=== PATIENT | male | born 1970 | race African-American/Black ===

== ENCOUNTER 2017-04-17 09:43 | Inpatient (IN) | payer OTHER ==
[2017-04-17 10:22] VITALS: BMI 41.9
[2017-04-17] MEDS ORDERED: ACETAMINOPHEN 325 MG TABLET (FP) PO PRN (14:56)
[2017-04-17] MEDS ORDERED: IBUPROFEN 400 MG TABLET (FP) PO PRN (14:56)
[2017-04-17] MEDS ORDERED: chlordiazePOXIDE HCL 25 MG CAPSULE PO PRN (14:56)
[2017-04-17] MEDS ORDERED: P-EPHED 60MG/TRIPROLIDI 2.5MG TABLET PO PRN (14:56)
[2017-04-17] MEDS ORDERED: MENTHOL/PHENOL 1 EACH UD MM PRN (14:56)
[2017-04-17] MEDS ORDERED: diphenhydrAMINE HCL 50 MG CAPSULE PO PRN (14:56)
[2017-04-17] MEDS ORDERED: MAG HYDROX/AL HYDROX/SIMETH 30 ML UNIT-DOSE CUP PO PRN (14:56)
[2017-04-17] MEDS ORDERED: MAGNESIUM CITRATE 300 ML BOTTLE PO PRN (14:56)
[2017-04-17] MEDS ORDERED: hydrOXYzine PAMOATE 50 MG CAPSULE (FP) PO PRN (14:56)
[2017-04-17] MEDS ORDERED: NICOTINE POLACRILEX 2 MG GUM BC PRN (14:56)
[2017-04-17] MEDS ORDERED: LOPERAMIDE HCL 2 MG CAPSULE PO PRN (14:56)
[2017-04-17] MEDS ORDERED: MAGNESIUM HYDROX 2400MG/30ML ORAL SUSPENSION 30 ML CUP PO PRN (14:56)
[2017-04-17] MEDS ORDERED: guaiFENesin/D-METHORPHAN HB 10 ML UNIT-DOSE CUPS PO PRN (14:56)
[2017-04-17] MEDS ORDERED: ALBUTEROL SO4 6.7 GM HFA INHALER IH PRN (14:59)
[2017-04-17] MEDS ORDERED: NITROGLYCERIN SUBLINGUAL 1/150 0.4 MG TAB SL PRN (14:59)
[2017-04-17] MEDS ORDERED: DOCUSATE SODIUM 100 MG CAPSULE (FP) PO PRN (14:59)
--- NOTE | 2017-04-17 15:11 | HP ---
CIWA Score - CIWA Score Nausea/Vomitin-Int. Nausea w/Dry Heave Muscle Tremors: 4-Moderate,w/Arms Extend Anxiety: 4-Mod. Anxious/Guarded Agitation: 3 Paroxysmal Sweats: 3 Orientation: 0-Oriented Tacttile Disturbances: 0-None Auditory Disturbances: 0-None Visual Disturbances: 0-None Headache: 0-None Present CIWA-Ar Total Score: 18 Admission ROS BHS - HPI Chief Complaint: alcohol withdrawal sx Allergies/Adverse Reactions: Allergies Allergy/AdvReac Type Severity Reaction Status Date / Time No Known Allergies Allergy Verified 04/17/17 12:25 History of Present Illness: 46 yo m with h/o chronic alcoholism, cocaine, cannabis and nicotine dependence< 10/day transferred from [facility] after clearance from multiple medical comorbidities PMHX HTN, COPD, Asthma, PPD+, bipolar DO, GERD, cardiac disease for inpatient medicall managed detoxification from alcohol. Patient reports yovany when he does not drink last drink today this AM. h/o alcohol withdrawwal seizures 2014, h/o DTS 2014 did not require intubation, had hallucinations. took al medicatons as prescribed today in hospital wishes to continue here at [place] and attned rehab after. Exam Limitations: No Limitations - Ebola screening Have you traveled outside of the country in the last 21 days: No Have you been sick,other than usual withdrawal symptoms: No Do you have a fever: No - Review of Systems Constitutional: Diaphoresis, Loss of Appetite, Malaise, Night Sweats, Weakness EENT: reports: Blurred Vision (glasses) Respiratory: reports: SOB with Exertion, Wheezing, Productive cough Cardiac: reports: Syncope (when he drinks) GI: reports: Nausea, Poor Appetite, Poor Fluid Intake, Indigestion, Abdominal cramping : reports: No Symptoms Reported Neuro: reports: Headache, Numbness, Paresthesia, Seizure (2015 from alochol), Tremors, Weakness Endocrine: reports: No Symptoms Reported Hematology: reports: No Symptoms Reported Psychiatric: reports: Judgement Intact, Mood/Affect Appropiate, Orientated x3, Anxious, Depressed Other Systems: Reviewed and Negative Patient History - Patient Medical History Hx Anemia: No Hx Asthma: Yes Hx Chronic Obstructive Pulmonary Disease (COPD): Yes Hx Cancer: No Hx Cardiac Disorders: Yes (CHF, angina, to heart attacks and cardiac arrest 2008 ) Hx Congestive Heart Failure: Yes (s/p ) Hx Hypertension: Yes Hx Hypercholesterolemia: Yes Hx Pacemaker: No HX Cerebrovascular Accident: No Hx Seizures: Yes (last episode was in 2014) Hx Dementia: No Hx Diabetes: No Hx Gastrointestinal Disorders: Yes (acid reflux) Hx Liver Disease: No Hx Genitourinary Disorders: No Hx Sexually Transmitted Disorders: No Hx Renal Disease (ESRD): No Hx Thyroid Disease: No Hx Human Immunodeficiency Virus (HIV): No Hx Hepatitis C: No Hx Depression: Yes Hx Suicide Attempt: No Hx Bipolar Disorder: Yes (hospitalized several times no h/o suicide attempts) Hx Schizophrenia: Yes - Patient Surgical History Past Surgical History: No Hx Neurologic Surgery: No Hx Cataract Extraction: No Hx Cardiac Surgery: No Hx Lung Surgery: No Hx Breast Surgery: No Hx Breast Biopsy: No Hx Abdominal Surgery: No Hx Appendectomy: No Hx Cholecystectomy: No Hx Genitourinary Surgery: No Hx Section: No Hx Orthopedic Surgery: No Other Surgical History: left wrist in 2012 Anesthesia Reaction: No - PPD History Previous Implant?: Yes Documented Results: Positive w/o proof - Reproductive History Patient is a Female of Child Bearing Age (11 -55 yrs old): No Patient : No - Smoking Cessation Smoking history: Current every day smoker Have you smoked in the past 12 months: Yes Aproximately how many cigarettes per day: 6 Hx Chewing Tobacco Use: No Initiated information on smoking cessation: Yes 'Breaking Loose' booklet given: 04/17/17 - Substance & Tx. History Hx Alcohol Use: Yes Hx Substance Use: Yes Substance Use Type: Alcohol, Cocaine, Marijuana Hx Substance Use Treatment: Yes (last detox 7 years ago, longest sober x7 years 2009- 2016) - Substances Abused Cocaine Route: Inhalation Frequency: 1-2 times per week Amount used: $10 Age of first use: 17 Date of Last Use: 04/16/17 Alcohol-vodka/beer Route: Oral Frequency: Daily Amount used: 3 1/2 pts./1 1/2-6 pks Age of first use: 12 Date of Last Use: 04/17/17 Marijuana/Hashish Route: Inhalation Amount used: occasional not regular smoker first used last night Date of Last Use: 04/16/17 Family Disease History - Family Disease History Family Disease History: Heart Disease: Grandparent, Father, Mother, Brother, Sister, Son, Daughter Admission Physical Exam [facility] - Vital Signs Vital Signs: Vital Signs - 24 hr 04/17/17 10:20 Temperature 97.4 F L Pulse Rate 81 Respiratory 20 Rate Blood Pressure 155/88 - Physical General Appearance: Yes: No Apparent Distress, Appropriately Dressed, Disheveled , Obese, Tremorous, Irritable, Sweating, Anxious HEENTM: Yes: Within Normal Limits, EOMI, Hearing grossly Normal, Normal ENT Inspection, Normocephalic, Normal Voice, LILLY, Pharynx Normal, Lessions (scar from trach after cardiac arrest in 2009 central no sign of infection) Respiratory: Yes: Within Normal Limits, Chest Non-Tender, Lungs Clear, Normal Breath Sounds, No Respiratory Distress, No Accessory Muscle Use Neck: Yes: Within Normal Limits, No masses,lesions,Nodules, Supple, Trachea in good position Breast: Yes: Breast Exam Deferred Cardiology: Yes: Within Normal Limits, Regular Rhythm, Regular Rate, S1, S2 Abdominal: Yes: Normal Bowel Sounds, Non Tender, Soft, Increased Bowel Sounds, Distended Genitourinary: Yes: Within Normal Limits Back: Yes: Within Normal Limits, Normal Inspection Musculoskeletal: Yes: Within Normal Limits, full range of Motion, Gait Steady, Pelvis Stable, Other (becomes sob with exertion walking long distances) Extremities: Yes: Within Normal Limits, Normal Capillary Refill, Normal Inspection, Normal Range of Motion, Non-Tender Neurological: Yes: landcare officer II-XII NML intact, Fully Oriented, Alert, Motor Strength 5/5, Normal Response, Depressed Affect Integumentary: Yes: Within Normal Limits, Normal Color, Warm Lymphatic: Yes: Within Normal Limits - Addiitonal Findings: withdrawal sx in a patient with multiple medical comorbidities and recent illness - Diagnostic (1) Alcohol dependence with uncomplicated withdrawal Current Visit: Yes Status: Chronic (2) Asthma Current Visit: Yes Status: Chronic (3) Bipolar disorder Current Visit: Yes Status: Chronic (4) COPD (chronic obstructive pulmonary disease) Current Visit: Yes Status: Chronic (5) Cannabis dependence, uncomplicated Current Visit: Yes Status: Acute (6) Chronic GERD Current Visit: Yes Status: Chronic (7) Cocaine dependence, uncomplicated Current Visit: Yes Status: Chronic (8) Essential hypertension Current Visit: Yes Status: Chronic (9) Nicotine dependence Current Visit: Yes Status: Chronic Qualifiers: Nicotine product type: cigarettes (10) PPD positive Current Visit: Yes Status: Chronic (11) CHF (congestive heart failure) Current Visit: No Status: Inactive BHS Breath Alcohol Content Breath Alcohol Content: 0.060 Urine Drug Screen - Results Drug Screen Negative: No Urine Drug Screen Results: THC-Marijuana, ROCHELLE-Cocaine
--- NOTE | 2017-04-17 15:31 | CONSULT ---
[facility] Psychiatric Consult - Data Date of interview: 04/17/17 Admission source: [facility] Identifying data: This is 46 years old male with history of Bipolar disorder, history of psychiatric hospitalizations intoxicated with: Alcohol, Cannabis, Cociane and Nicotine Substance Abuse History: Smoking history: Current every day smoker. Have you smoked in the past 12 months: Yes. Aproximately how many cigarettes per day: 6. Hx Chewing Tobacco Use: No. Initiated information on smoking cessation: Yes. 'Breaking Loose' booklet given: 04/17/17. - Substance & Tx. History. Hx Alcohol Use: Yes. Hx Substance Use: Yes. Substance Use Type: Alcohol, Cocaine , Marijuana. Hx Substance Use Treatment: Yes (last detox 7 years ago, longest sober x7 years 2009- 2016). - Substances Abused. Cocaine. Route: Inhalation. Frequency: 1-2 times per week. Amount used: $10. Age of first use : 17. Date of Last Use: 04/16/17. Alcohol-vodka/beer. Route: Oral. Frequency: Daily. Amount used: 3 1/2 pts./1 1/2-6 pks. Age of first use: 12. Date of Last Use: 04/17/17. Marijuana/Hashish. Route: Inhalation. Amount used: occasional not regular smoker first used last night. Date of Last Use: Medical History: Astma, COPD, GERD, HTN, Obesity, CHF, PPD+ history Psychiatric History: Patoient reports to carry Bipolar disorder, reports [facility] , reports liz been with good response in the past on: Depakote 500mg po bid. Abilify 20mg poqd Physical/Sexual Abuse/Trauma History: Denies Additional Comment: Depakote 500mg po bid. Abilify 20mg poqd Mental Status Exam - Mental Status Exam Alert and Oriented to: Person Cognitive Function: Fair Patient Appearance: Unkempt Mood: Anxious Affect: Mood Congruent Patient Behavior: Talkative Speech Pattern: Pressured Voice Loudness: Normal Thought Process: Goal Oriented Thought Disorder: Being Controlled Hallucinations: Denies Suicidal Ideation: Denies Homicidal Ideation: Denies Insight/Judgement: Fair Sleep: Difficulty falling asleep Appetite: Weight gain Muscle strength/Tone: Normal Gait/Station: Normal Additional Comments: Depakote 500mg po bid. Abilify 20mg poqd Psychiatric Findings - Problem List ([place] 1, 2,3) (1) Cannabis dependence, uncomplicated Current Visit: Yes Status: Acute (2) Alcohol dependence with uncomplicated withdrawal Current Visit: Yes Status: Chronic (3) Bipolar disorder Current Visit: Yes Status: Chronic (4) Cocaine dependence, uncomplicated Current Visit: Yes Status: Chronic (5) Nicotine dependence Current Visit: Yes Status: Chronic Qualifiers: Nicotine product type: cigarettes (6) Bipolar I disorder Current Visit: Yes Status: Acute - Initial Treatment Plan Initial Treatment Plan: Depakote 250mg po bid. Abilify 20mg poqd. Blood Depakote level
[2017-04-17] MEDS ORDERED: chlordiazePOXIDE HCL 25 MG CAPSULE PO ONE (15:45)
[2017-04-17] MEDS: CARVEDILOL 25 MG TABLET (FP) PO SCH ×2 (19:08→22:42)
[2017-04-17] MEDS: chlordiazePOXIDE HCL 25 MG CAPSULE PO SCH ×2 (19:09→22:43)
[2017-04-17] MEDS: NICOTINE 14 MG/24 HOURS TOPICAL PATCH TD SCH (19:09)
[2017-04-17] MEDS: ISOSORBIDE DINITRATE 20 MG TABLET (FP) PO SCH ×2 (20:00→22:42)
[2017-04-17] MEDS: ATORVASTATIN CA 40 MG TABLET (FP) PO SCH (22:42)
[2017-04-17] MEDS: THIAMINE HCL 100 MG TABLET (FP) PO SCH (22:42)
[2017-04-17] MEDS: DIVALPROEX SODIUM 250 MG TABLET E.C. (FP) PO SCH (22:42)
[2017-04-17] MEDS: ACLIDINIUM BROMIDE 400 MCG/INH AERO.POWD IH SCH (22:43)
[2017-04-18 00:32] LABS: URINE APPEARANCE CLEAR; URINE BILIRUBIN NEGATIVE (NEGATIVE); URINE BLOOD NEGATIVE (NEGATIVE); URINE COLOR YELLOW; URINE GLUCOSE (UA) NEGATIVE (NEGATIVE); URINE KETONE NEGATIVE (NEGATIVE); URINE LEUK ESTERASE NEGATIVE (NEGATIVE); URINE NITRITE NEGATIVE (NEGATIVE); URINE UROBILINOGEN 4.0 E.U/dl mg/dL (0.2-1.0)
[2017-04-18 00:38] LABS: URINE PROTEIN 1+ (NEGATIVE)
[2017-04-18 00:59] LABS: CALCIUM OXALATE CRYSTALS FEW /hpf (NONE SEEN); URINE MUCUS RARE; URINE RBC 1 /hpf (0-3); URINE WBC 3 /hpf (3-5)
[2017-04-18] MEDS: chlordiazePOXIDE HCL 25 MG CAPSULE PO SCH ×4 (05:54→22:47)
[2017-04-18] MEDS: ISOSORBIDE DINITRATE 20 MG TABLET (FP) PO SCH (07:15)
[2017-04-18] MEDS ORDERED: LISINOPRIL 20 MG TABLET (FP) PO ONE ×2 (09:16→10:00)
[2017-04-18] MEDS: PATIENT'S OWN MEDICATION (NON-FORMULARY) (Hydralazine Hcl [Hydralazine Hcl] 100 MG) PO SCH (09:19)
--- NOTE | 2017-04-18 09:23 | EKG ---
Test Reason : Blood Pressure : / mmHG Vent. Rate : 065 BPM Atrial Rate : 065 BPM P-R Int : 192 ms QRS Dur : 106 ms QT Int : 414 ms P-R-T Axes : 064 063 028 degrees QTc Int : 430 ms NORMAL SINUS RHYTHM POSSIBLE LEFT ATRIAL ENLARGEMENT INCOMPLETE LEFT BUNDLE BRANCH BLOCK Confirmed by KRYSTAL DONIS MD ([id number]) on 04/18/2017 9:22:47 AM Referred By: Young Fisher Confirmed By:KRYSTAL DONIS MD
[2017-04-18] MEDS ORDERED: ERGOCALCIFEROL (VITAMIN D2) 50,000 UNIT CAPSULE (FP) PO SCH (10:00)
[2017-04-18] MEDS ORDERED: PATIENT'S OWN MEDICATION (NON-FORMULARY) (Lisinopril [Zestril] 40 MG) PO SCH (10:00)
[2017-04-18 10:18] LABS: MCH 29.1 pg (25.7-33.7); MCHC 32.8 g/dl (32.0-35.9); MEAN CELL VOLUME 88.8 fl (80-96); MEAN PLT VOLUME 9.1 fl (7.5-11.1); PLATELET COUNT 244 K/MM3 (134-434); RDW 14.8 % (11.9-15.9); WHITE BLOOD COUNT 5.1 K/mm3 (4.0-10.0)
[2017-04-18] MEDS: ACLIDINIUM BROMIDE 400 MCG/INH AERO.POWD IH SCH ×2 (10:23→22:50)
[2017-04-18] MEDS: NIFEdipine E.R. 90 MG TABLET (FP) PO SCH (10:24)
[2017-04-18] MEDS: ASPIRIN 81 MG CHEWABLE TABLETS PO SCH (10:24)
[2017-04-18] MEDS: ARIPiprazole 10 MG TABLET PO SCH (10:24)
[2017-04-18] MEDS: PANTOPRAZOLE 40 MG TABLET (FP) PO SCH (10:24)
[2017-04-18] MEDS: NICOTINE 14 MG/24 HOURS TOPICAL PATCH TD SCH (10:24)
[2017-04-18] MEDS: CARVEDILOL 25 MG TABLET (FP) PO SCH ×2 (10:25→22:48)
[2017-04-18] MEDS: PRENATAL VITAMINS W/ FOLIC ACID TABLET (FP) PO SCH (10:25)
[2017-04-18] MEDS: DIVALPROEX SODIUM 250 MG TABLET E.C. (FP) PO SCH ×2 (10:26→22:48)
[2017-04-18] MEDS: FUROSEMIDE 40 MG TABLET (FP) PO SCH (10:26)
[2017-04-18 10:42] LABS: CALCIUM 8.9 mg/dL (8.5-10.1)
[2017-04-18 10:48] LABS: ALBUMIN 3.8 g/dl (3.4-5.0); ALK PHOS 88 U/L (45-117); ANION GAP 6 (8-16); BILIRUBIN,TOTAL 0.5 mg/dL (0.2-1.0); CO2 31 mmol/L (21-32); CREATININE 1.4 mg/dL (0.7-1.3); GLUCOSE,RANDOM 84 mg/dL (74-106); SGOT/AST 13 U/L (15-37); SGPT/ALT 25 U/L (12-78); TOT PROT 7.1 g/dl (6.4-8.2)
--- NOTE | 2017-04-18 11:54 | PN ---
[facility] CIWA - CIWA Score Nausea/Vomitin-No Nausea/No Vomiting Muscle Tremors: 4-Moderate,w/Arms Extend Anxiety: 4-Mod. Anxious/Guarded Agitation: 4-Moderately Restless Paroxysmal Sweats: 1-Minimal Palms Moist Orientation: 0-Oriented Tacttile Disturbances: 3-Moderate Itch/Numb/Burn Auditory Disturbances: 0-None Visual Disturbances: 0-None Headache: 0-None Present CIWA-Ar Total Score: 16 S Progress Note (SOAP) Subjective: ANXIETY,SWEATS,TREMORS, INTERMITTENT SLEEP. Objective: 04/18/17 11:53 Vital Signs Temperature 97.4 F L 04/18/17 10:05 Pulse Rate 73 04/18/17 10:05 Respiratory Rate 18 04/18/17 10:05 Blood Pressure 129/87 04/18/17 10:05 O2 Sat by Pulse Oximetry (%) Laboratory Last Values WBC 5.1 K/mm3 (4.0-10.0) 04/18/17 06:00 RBC 4.60 M/mm3 (4.00-5.60) 04/18/17 06:00 Hgb 13.4 GM/dL (11.7-16.9) 04/18/17 06:00 Hct 40.8 % (35.4-49) 04/18/17 06:00 MCV 88.8 fl (80-96) 04/18/17 06:00 MCH 29.1 pg (25.7-33.7) 04/18/17 06:00 MCHC 32.8 g/dl (32.0-35.9) 04/18/17 06:00 RDW 14.8 % (11.9-15.9) 04/18/17 06:00 Plt Count 244 K/MM3 (134-434) 04/18/17 06:00 MPV 9.1 fl (7.5-11.1) 04/18/17 06:00 Sodium 142 mmol/L (136-145) 04/18/17 06:00 Potassium 3.9 mmol/L (3.5-5.1) 04/18/17 06:00 Chloride 105 mmol/L (98-107) 04/18/17 06:00 Carbon Dioxide 31 mmol/L (21-32) 04/18/17 06:00 Anion Gap 6 (8-16) L 04/18/17 06:00 BUN 14 mg/dL (7-18) 04/18/17 06:00 Creatinine 1.4 mg/dL (0.7-1.3) H 04/18/17 06:00 Creat Clearance w eGFR 54.32 (>60) 04/18/17 06:00 Random Glucose 84 mg/dL (74-106) 04/18/17 06:00 Calcium 8.9 mg/dL (8.5-10.1) 04/18/17 06:00 Total Bilirubin 0.5 mg/dL (0.2-1.0) 04/18/17 06:00 AST 13 U/L (15-37) L 04/18/17 06:00 ALT 25 U/L (12-78) 04/18/17 06:00 Alkaline Phosphatase 88 U/L (45-117) 04/18/17 06:00 Total Protein 7.1 g/dl (6.4-8.2) 04/18/17 06:00 Albumin 3.8 g/dl (3.4-5.0) 04/18/17 06:00 Urine Color Yellow 04/18/17 00:01 Urine Appearance Clear 04/18/17 00:01 Urine pH 5.0 (5.0-8.0) 04/18/17 00:01 Ur Specific [place] 1.025 (1.005-1.025) 04/18/17 00:01 Urine Protein 1+ (NEGATIVE) H 04/18/17 00:01 Urine Glucose (UA) Negative (NEGATIVE) 04/18/17 00:01 Urine Ketones Negative (NEGATIVE) 04/18/17 00:01 Urine Blood Negative (NEGATIVE) 04/18/17 00:01 Urine Nitrite Negative (NEGATIVE) 04/18/17 00:01 Urine Bilirubin Negative (NEGATIVE) 04/18/17 00:01 Urine Urobilinogen 4.0 e.u/dl mg/dL (0.2-1.0) 04/18/17 00:01 Ur Leukocyte Esterase Negative (NEGATIVE) 04/18/17 00:01 Urine RBC 1 /hpf (0-3) 04/18/17 00:01 Urine WBC 3 /hpf (3-5) 04/18/17 00:01 Ur Epithelial Cells Rare /hpf (FEW) 04/18/17 00:01 Calcium Oxalate Crystal Few /hpf (NONE SEEN) 04/18/17 00:01 Urine Mucus Rare 04/18/17 00:01 Valproic Acid < 3.000 ug/ml (50-100) L 04/18/17 06:00 RPR Titer Nonreactive (NONREACTIVE) 04/18/17 06:00 Assessment: 04/18/17 11:53 WITHDRAWAL SX Plan: CONTINUE DETOX
[2017-04-18 12:18] LABS: HIV 1 & 2 AB NEGATIVE; HIV 1 AGp24 NEGATIVE
[2017-04-18] MEDS: ISOSORBIDE DINITRATE 10 MG TABLET (FP) PO SCH ×2 (14:02→22:50)
[2017-04-18] MEDS: ATORVASTATIN CA 40 MG TABLET (FP) PO SCH (22:48)
[2017-04-18] MEDS: THIAMINE HCL 100 MG TABLET (FP) PO SCH (22:48)
[2017-04-19] MEDS: chlordiazePOXIDE HCL 25 MG CAPSULE PO SCH ×2 (05:46→10:42)
[2017-04-19] MEDS: ISOSORBIDE DINITRATE 10 MG TABLET (FP) PO SCH ×3 (05:47→22:53)
[2017-04-19] MEDS: NIFEdipine E.R. 90 MG TABLET (FP) PO SCH (10:42)
[2017-04-19] MEDS: DIVALPROEX SODIUM 250 MG TABLET E.C. (FP) PO SCH ×2 (10:42→22:53)
[2017-04-19] MEDS: ASPIRIN 81 MG CHEWABLE TABLETS PO SCH (10:42)
[2017-04-19] MEDS: PANTOPRAZOLE 40 MG TABLET (FP) PO SCH (10:42)
[2017-04-19] MEDS: FUROSEMIDE 40 MG TABLET (FP) PO SCH (10:42)
[2017-04-19] MEDS: PRENATAL VITAMINS W/ FOLIC ACID TABLET (FP) PO SCH (10:42)
[2017-04-19] MEDS: ACLIDINIUM BROMIDE 400 MCG/INH AERO.POWD IH SCH ×2 (10:42→22:54)
[2017-04-19] MEDS: CARVEDILOL 25 MG TABLET (FP) PO SCH ×2 (10:43→22:53)
[2017-04-19] MEDS: ARIPiprazole 10 MG TABLET PO SCH (10:44)
[2017-04-19] MEDS: NICOTINE 14 MG/24 HOURS TOPICAL PATCH TD SCH (11:09)
[2017-04-19] MEDS: chlordiazePOXIDE 5 MG CAPSULE PO SCH ×2 (17:40→22:54)
--- NOTE | 2017-04-19 20:55 | PN ---
S CIWA - CIWA Score Nausea/Vomitin Muscle Tremors: 2 Anxiety: 3 Agitation: 2 Paroxysmal Sweats: 3 Orientation: 0-Oriented Tacttile Disturbances: 0-None Auditory Disturbances: 2-Mild Harshness/Frighten Visual Disturbances: 3-Moderate Sensitivity Headache: 0-None Present CIWA-Ar Total Score: 18 S Progress Note (SOAP) Subjective: Interrupted Sleep, Stomach Cramping, Body aches, Nausea, Sweating. Objective: PT. A & O X 3, OBSERVED AMBULATING ON UNIT. NO ACUTE DISTRESS. 04/19/17 20:52 Vital Signs Temperature 98.2 F 04/19/17 17:53 Pulse Rate 69 04/19/17 17:53 Respiratory Rate 20 04/19/17 17:53 Blood Pressure 104/63 04/19/17 17:53 O2 Sat by Pulse Oximetry (%) Laboratory Tests 04/17/17 04/18/17 04/18/17 06:00 00:01 06:00 WBC 5.1 RBC 4.60 Hgb 13.4 Hct 40.8 MCV 88.8 MCH 29.1 MCHC 32.8 RDW 14.8 Plt Count 244 MPV 9.1 Sodium Potassium Chloride Carbon Dioxide Anion Gap BUN Creatinine Creat Clearance w eGFR Random Glucose Calcium Total Bilirubin AST ALT Alkaline Phosphatase Total Protein Albumin Urine Color Yellow Urine Appearance Clear Urine pH 5.0 Ur Specific [place] 1.025 Urine Protein 1+ H Urine Glucose (UA) Negative Urine Ketones Negative Urine Blood Negative Urine Nitrite Negative Urine Bilirubin Negative Urine Urobilinogen 4.0 e.u/dl Ur Leukocyte Esterase Negative Urine RBC 1 Urine WBC 3 Ur Epithelial Cells Rare Calcium Oxalate Crystal Few Urine Mucus Rare Valproic Acid RPR Titer HIV 1&2 Antibody Screen Negative HIV P24 Antigen Negative 04/18/17 04/18/17 04/18/17 06:00 06:00 06:00 WBC RBC Hgb Hct MCV MCH MCHC RDW Plt Count MPV Sodium 142 Potassium 3.9 Chloride 105 Carbon Dioxide 31 Anion Gap 6 L BUN 14 Creatinine 1.4 H Creat Clearance w eGFR 54.32 Random Glucose 84 Calcium 8.9 Total Bilirubin 0.5 AST 13 L ALT 25 Alkaline Phosphatase 88 Total Protein 7.1 Albumin 3.8 Urine Color Urine Appearance Urine pH Ur Specific [place] Urine Protein Urine Glucose (UA) Urine Ketones Urine Blood Urine Nitrite Urine Bilirubin Urine Urobilinogen Ur Leukocyte Esterase Urine RBC Urine WBC Ur Epithelial Cells Calcium Oxalate Crystal Urine Mucus Valproic Acid < 3.000 L RPR Titer Nonreactive HIV 1&2 Antibody Screen HIV P24 Antigen LABS NOTED. Assessment: 04/19/17 20:53 WITHDRAWAL SYMPTOMS. Plan: CONTINUE DETOX.
[2017-04-19] MEDS: ATORVASTATIN CA 40 MG TABLET (FP) PO SCH (22:54)
[2017-04-19] MEDS: THIAMINE HCL 100 MG TABLET (FP) PO SCH (22:54)
[2017-04-20] MEDS: ISOSORBIDE DINITRATE 10 MG TABLET (FP) PO SCH ×3 (06:12→22:31)
[2017-04-20] MEDS: chlordiazePOXIDE 5 MG CAPSULE PO SCH ×3 (06:12→10:54)
[2017-04-20] MEDS: ARIPiprazole 10 MG TABLET PO SCH (10:53)
[2017-04-20] MEDS: ASPIRIN 81 MG CHEWABLE TABLETS PO SCH (10:53)
[2017-04-20] MEDS: FUROSEMIDE 40 MG TABLET (FP) PO SCH (10:54)
[2017-04-20] MEDS: NICOTINE 14 MG/24 HOURS TOPICAL PATCH TD SCH (10:54)
[2017-04-20] MEDS: PANTOPRAZOLE 40 MG TABLET (FP) PO SCH (10:54)
[2017-04-20] MEDS: NIFEdipine E.R. 90 MG TABLET (FP) PO SCH (10:54)
[2017-04-20] MEDS: ACLIDINIUM BROMIDE 400 MCG/INH AERO.POWD IH SCH ×2 (10:54→22:30)
[2017-04-20] MEDS: PRENATAL VITAMINS W/ FOLIC ACID TABLET (FP) PO SCH (10:54)
[2017-04-20] MEDS: CARVEDILOL 25 MG TABLET (FP) PO SCH ×2 (10:55→22:31)
[2017-04-20] MEDS: DIVALPROEX SODIUM 250 MG TABLET E.C. (FP) PO SCH ×2 (10:55→22:31)
--- NOTE | 2017-04-20 16:47 | PN ---
[facility] Progress Note (SOAP) Subjective: Body Aches, Anxious, Sweating. Objective: PT. A & O X 3. NO ACUTE DISTRESS. 04/20/17 16:46 Vital Signs Temperature 98.2 F 04/20/17 10:00 Pulse Rate 80 04/20/17 10:00 Respiratory Rate 18 04/20/17 10:00 Blood Pressure 121/81 04/20/17 10:00 O2 Sat by Pulse Oximetry (%) Laboratory Tests 04/17/17 04/18/17 04/18/17 06:00 00:01 06:00 WBC 5.1 RBC 4.60 Hgb 13.4 Hct 40.8 MCV 88.8 MCH 29.1 MCHC 32.8 RDW 14.8 Plt Count 244 MPV 9.1 Sodium Potassium Chloride Carbon Dioxide Anion Gap BUN Creatinine Creat Clearance w eGFR Random Glucose Calcium Total Bilirubin AST ALT Alkaline Phosphatase Total Protein Albumin Urine Color Yellow Urine Appearance Clear Urine pH 5.0 Ur Specific [place] 1.025 Urine Protein 1+ H Urine Glucose (UA) Negative Urine Ketones Negative Urine Blood Negative Urine Nitrite Negative Urine Bilirubin Negative Urine Urobilinogen 4.0 e.u/dl Ur Leukocyte Esterase Negative Urine RBC 1 Urine WBC 3 Ur Epithelial Cells Rare Calcium Oxalate Crystal Few Urine Mucus Rare Valproic Acid RPR Titer HIV 1&2 Antibody Screen Negative HIV P24 Antigen Negative 04/18/17 04/18/17 04/18/17 06:00 06:00 06:00 WBC RBC Hgb Hct MCV MCH MCHC RDW Plt Count MPV Sodium 142 Potassium 3.9 Chloride 105 Carbon Dioxide 31 Anion Gap 6 L BUN 14 Creatinine 1.4 H Creat Clearance w eGFR 54.32 Random Glucose 84 Calcium 8.9 Total Bilirubin 0.5 AST 13 L ALT 25 Alkaline Phosphatase 88 Total Protein 7.1 Albumin 3.8 Urine Color Urine Appearance Urine pH Ur Specific [place] Urine Protein Urine Glucose (UA) Urine Ketones Urine Blood Urine Nitrite Urine Bilirubin Urine Urobilinogen Ur Leukocyte Esterase Urine RBC Urine WBC Ur Epithelial Cells Calcium Oxalate Crystal Urine Mucus Valproic Acid < 3.000 L RPR Titer Nonreactive HIV 1&2 Antibody Screen HIV P24 Antigen labs noted. Assessment: 04/20/17 16:46 WITHDRAWAL SYMPTOMS. Plan: CONTINUE DETOX.
[2017-04-20] MEDS: chlordiazePOXIDE HCL 10 MG CAPSULE PO SCH ×2 (18:23→22:31)
[2017-04-20] MEDS: THIAMINE HCL 100 MG TABLET (FP) PO SCH (22:30)
[2017-04-20] MEDS: ATORVASTATIN CA 40 MG TABLET (FP) PO SCH (22:31)
[2017-04-21] MEDS: chlordiazePOXIDE HCL 10 MG CAPSULE PO SCH (05:42)
[2017-04-21] MEDS: ISOSORBIDE DINITRATE 10 MG TABLET (FP) PO SCH (05:42)
[2017-04-21 09:05] VITALS: BP 128/79; PULSE 81; TEMP 97.3
--- NOTE | 2017-04-21 18:18 | DS ---
[facility] Detox Discharge Summary Admission Date: 04/17/17 Discharge Date: 04/21/17 - History Present History: Alcohol Dependence, Cannabis Dependence, Cocaine Dependence Additional Comments: PATIENT GOING HOME. PATIENT ADVISED TO CONSIDER LOCAL 12-STEP / NA / AA OUTPATIENT SUPPORT GROUPS FOR AFTERCARE. PATIENT WAS DISCHARGED FROM DETOX UNIT IN STABLE MEDICAL CONDITION. Pertinent Past History: History of CHF, HTN, Angina, Hypercholesterolemia, GERD, Bipolar disorder, Schizophrenia, COPD, History of Positive PPD, Asthma, History of seizures. - Physical Exam Results Vital Signs: Vital Signs Temperature 97.3 F L 04/21/17 09:05 Pulse Rate 81 04/21/17 09:05 Respiratory Rate 20 04/21/17 09:05 Blood Pressure 128/79 04/21/17 09:05 O2 Sat by Pulse Oximetry (%) Pertinent Admission Physical Exam Findings: WITHDRAWAL SYMPTOMS. Laboratory Tests 04/17/17 04/18/17 04/18/17 06:00 00:01 06:00 WBC 5.1 RBC 4.60 Hgb 13.4 Hct 40.8 MCV 88.8 MCH 29.1 MCHC 32.8 RDW 14.8 Plt Count 244 MPV 9.1 Sodium Potassium Chloride Carbon Dioxide Anion Gap BUN Creatinine Creat Clearance w eGFR Random Glucose Calcium Total Bilirubin AST ALT Alkaline Phosphatase Total Protein Albumin Urine Color Yellow Urine Appearance Clear Urine pH 5.0 Ur Specific [place] 1.025 Urine Protein 1+ H Urine Glucose (UA) Negative Urine Ketones Negative Urine Blood Negative Urine Nitrite Negative Urine Bilirubin Negative Urine Urobilinogen 4.0 e.u/dl Ur Leukocyte Esterase Negative Urine RBC 1 Urine WBC 3 Ur Epithelial Cells Rare Calcium Oxalate Crystal Few Urine Mucus Rare Valproic Acid RPR Titer HIV 1&2 Antibody Screen Negative HIV P24 Antigen Negative 04/18/17 04/18/17 04/18/17 06:00 06:00 06:00 WBC RBC Hgb Hct MCV MCH MCHC RDW Plt Count MPV Sodium 142 Potassium 3.9 Chloride 105 Carbon Dioxide 31 Anion Gap 6 L BUN 14 Creatinine 1.4 H Creat Clearance w eGFR 54.32 Random Glucose 84 Calcium 8.9 Total Bilirubin 0.5 AST 13 L ALT 25 Alkaline Phosphatase 88 Total Protein 7.1 Albumin 3.8 Urine Color Urine Appearance Urine pH Ur Specific [place] Urine Protein Urine Glucose (UA) Urine Ketones Urine Blood Urine Nitrite Urine Bilirubin Urine Urobilinogen Ur Leukocyte Esterase Urine RBC Urine WBC Ur Epithelial Cells Calcium Oxalate Crystal Urine Mucus Valproic Acid < 3.000 L RPR Titer Nonreactive HIV 1&2 Antibody Screen HIV P24 Antigen LABS NOTED. - Treatment Hospital Course: Detox Protocol Followed, Detoxed Safely, Responded well, Discharged Condition Good Patient has Accepted a Rehab Referral to: PT. GOING HOME; ADVISED 12-STEP/NA/AA SUPPORT GROUP FOR AFTERC - Medication Discharge Medications: Ambulatory Orders Albuterol Sulfate Inhaler - [Ventolin Hfa Inhaler -] 2 inh PO Q6H PRN 04/17/17 Aripiprazole [Abilify -] 20 mg PO DAILY #30 tablet 04/17/17 Aspirin [ASA -] 81 mg PO DAILY 04/17/17 Atorvastatin Ca [Lipitor] 80 mg PO HS 04/17/17 Carvedilol [Coreg -] 25 mg PO Q12H 04/17/17 Divalproex [Depakote -] 250 mg PO BID #60 tab 04/17/17 Docusate Sodium [Colace -] 100 mg PO BID PRN 04/17/17 Ergocalciferol (Vitamin D2) [Vitamin D2] 50,000 unit PO WEEKLY 04/17/17 Furosemide [Lasix -] 40 mg PO DAILY 04/17/17 Hydralazine HCl 100 mg PO Q8H 04/17/17 Isosorbide Dinitrate [Isordil -] 20 mg PO Q8H 04/17/17 Lisinopril [Zestril] 40 mg PO DAILY 04/17/17 Nifedipine ER [Procardia Xl -] 90 mg PO DAILY 04/17/17 Nitroglycerin [Nitrostat] 0.4 mg SL PRN PRN 04/17/17 Pantoprazole Sodium [Protonix -] 40 mg PO DAILY 04/17/17 Tiotropium [place] [Spiriva] 1 inh PO DAILY 04/17/17 - Diagnosis (1) Bipolar I disorder Status: Acute (2) Cannabis dependence, uncomplicated Status: Acute (3) Alcohol dependence with uncomplicated withdrawal Status: Acute (4) Asthma Status: Chronic Qualifiers: Asthma severity: mild intermittent Asthma complication type: uncomplicated Qualified Code(s): J45.20 - Mild intermittent asthma, uncomplicated (5) Bipolar disorder Status: Chronic Qualifiers: Active/Remission status: remission status unspecified Qualified Code (s): F31.9 - Bipolar disorder, unspecified (6) COPD (chronic obstructive pulmonary disease) Status: Chronic Qualifiers: COPD type: emphysema Emphysema type: unspecified Qualified Code( s): J43.9 - Emphysema, unspecified (7) Chronic GERD Status: Chronic (8) Cocaine dependence, uncomplicated Status: Acute (9) Essential hypertension Status: Chronic (10) Nicotine dependence Status: Chronic Qualifiers: Nicotine product type: cigarettes Substance use status: uncomplicated Qualified Code(s): F17.210 - Nicotine dependence, cigarettes, uncomplicated (11) PPD positive Status: Chronic - AMA Did Patient Leave Against Medical Advice: No
== END 2017-04-21 09:29 | disposition home or self-care (01) | DRG 774 ==
LOC: YASAS 09:43 → Y3N 15:06
PROVIDERS: ADMIT Internal Medicine Addiction Medicine; ATTEND Internal Medicine Addiction Medicine
PROC: HZ2ZZZZ Detoxification Services for Substance Abuse Treatment (ICD-10-PCS; principal; 2017-04-17)
DX: F10.230 Alcohol dependence with withdrawal, uncomplicated (principal); F14.20 Cocaine dependence, uncomplicated; F12.20 Cannabis dependence, uncomplicated; F17.210 Nicotine dependence, cigarettes, uncomplicated; F31.9 Bipolar disorder, unspecified; I10 Essential (primary) hypertension; I50.9 Heart failure, unspecified; J45.20 Mild intermittent asthma, uncomplicated; J43.9 Emphysema, unspecified; E78.00 Pure hypercholesterolemia, unspecified; K21.9 Gastro-esophageal reflux disease without esophagitis; R76.11 Nonspecific reaction to tuberculin skin test without active tuberculosis; E66.9 Obesity, unspecified; Z68.41 Body mass index [BMI] 40.0-44.9, adult; Z86.73 Personal history of transient ischemic attack (TIA), and cerebral infarction without residual deficits
CPT/HCPCS: 36415; 71020-TC; 80053; 80164; 81003; 81015; 85027; 86593; 87389; 93005; 93010